=== PATIENT | male | born 1980 | race Caucasian/White ===

== ENCOUNTER 2021-09-14 05:19 | Emergency (ER) | payer OTHER ==
[2021-09-14 06:02] LABS: BASOPHIL 0.2 % (0-2); EOSINOPHIL 0 % (0-5); HCT 45.3 % (42.0-52.0); HGB 15.8 g/dl (13.2-18.0); LYMPHOCYTE 22.2 % (15-48); MCH 29.9 pg (25.0-31.0); MCHC 34.9 g/dL (32.0-36.0); MCV 85.8 fL (78.0-100.0); MONOCYTE 6.9 % (0-12); MPV 9.4 fL (6.0-9.5); NEUTROPHIL 70.5 % (41-80); NRBC 0; PLT 178 K/uL (150-400); RBC 5.28 M/uL (4.70-6.00); RDW 12.1 % (11.5-14.0); WBC 5.4 K/uL (4.0-10.5)
[2021-09-14 06:22] LABS: ALBUMIN 3.7 g/dL (3.4-5.0); BILIRUBIN - TOTAL 0.6 mg/dL (0.2-1.0); BUN/CREAT RATIO (CALC) 13.7 RATIO; CREATININE 0.95 mg/dL (0.67-1.17); GLOBULIN (CALCULATION) 4.4 g/dL; POTASSIUM 3.9 mmol/L (3.5-5.1); TOTAL PROTEIN 8.1 g/dL (6.4-8.2)
[2021-09-14] MEDS ORDERED: VENTOLIN HFA18 GM INH (06:38)
[2021-09-14] MEDS ORDERED: ZOFRAN4 M1 PO (06:38)
[2021-09-14] MEDS ORDERED: ZPAK PO (06:38)
[2021-09-14 06:39] LABS: INFLUENZA A NAA NEGATIVE (NEGATIVE)
[2021-09-14 06:40] LABS: CORONAVIRUS 2019 SARS-COV-2 POSITIVE (NEGATIVE)
== END 2021-09-14 06:45 | disposition home or self-care (01) ==
LOC: FER 05:19
PROVIDERS: Emergency Medicine
DX: U07.1 COVID-19 (principal)
CPT/HCPCS: 36415; 71045; 80053; 84145; 84484; 85025; 85379; 93005; J2405; J7030; U0002